=== PATIENT | female | born 1975 | race Caucasian/White ===

== ENCOUNTER 2020-05-14 04:50 | Emergency (ER) | payer OTHER ==
[~2020-05-14] VITALS: Ht 162.6 cm; Wt 68.0 kg
[2020-05-14 04:50] VITALS: BP 131/80
== END 2020-05-14 05:55 | disposition home or self-care (01) ==
LOC: ER 04:54
DX: Z20.828 Contact with and (suspected) exposure to other viral communicable diseases (principal)
CPT/HCPCS: 87426; 99283; C9803